=== PATIENT | male | born 1995 | race Caucasian/White ===

== ENCOUNTER 2021-02-22 11:21 | Emergency (ER) | payer OTHER ==
[2021-02-22 12:41] VITALS: BP 131/83; PULSE 78; RESP 18; TEMP 97.8
--- NOTE | 2021-02-22 13:32 | ED ---
URI HPI - General Chief Complaint: Upper Respiratory Infection Stated Complaint: cough/fever/sob Time Seen by Provider: 02/22/21 12:53 Source: patient, RN notes reviewed Mode of arrival: ambulatory Limitations: no limitations - History of Present Illness Initial Comments: Patient is a 25-year-old male presenting to emergency Department for a recheck. Patient states one week ago he had a cough, congestion and fever for 2 days. Patient states he missed about 3 days of work. Throughout last week his symptoms have improved and today he feels back to his normal self. He is here for a recheck and a work note. He denies any chest pain or short of breath, no coughing or congestion today. No abdominal pain, no nausea or vomiting. No fevers or chills in the last 2 days. He denies history of asthma COPD. He takes no medications. He has no further complaints. His vitals are stable upon arrival. - Related Data Allergies Allergy/AdvReac Type Severity Reaction Status Date / Time No Known Allergies Allergy Verified 02/22/21 12:37 Review of Systems ROS Statement: Those systems with pertinent positive or pertinent negative responses have been documented in the HPI. ROS Other: All systems not noted in ROS Statement are negative. Past Medical History Past Medical History: No Reported History History of Any Multi-Drug Resistant Organisms: None Reported Past Surgical History: No Surgical Hx Reported Past Psychological History: No Psychological Hx Reported Smoking Status: Current every day smoker Past Alcohol Use History: None Reported Past Drug Use History: None Reported General Exam - General Exam Comments Initial Comments: GENERAL: Patient is well-developed and well-nourished. Patient is nontoxic and in no acute distress. HEAD: Atraumatic, normocephalic. EYES: Pupils equal round and reactive to light, extraocular movements intact, sclera anicteric, conjunctiva are normal. Eyelids were unremarkable. ENT: Nares patent, oropharynx clear without exudates. Moist mucous membranes. NECK: Normal range of motion, supple without lymphadenopathy or JVD. LUNGS: Unlabored respirations. Breath sounds clear to auscultation bilaterally and equal. No wheezes rales or rhonchi. HEART: Regular rate and rhythm without murmurs, rubs or gallops. ABDOMEN: Soft, nontender, normoactive bowel sounds. No guarding, no rebound. No masses appreciated. : Deferred MUSCULOSKELETAL: Normal extremities with adequate strength and normal range of motion, no pitting or edema. No clubbing or cyanosis. NEUROLOGICAL: Patient is alert and oriented x 3. SKIN: Warm, Dry, normal turgor, no rashes or lesions noted. Limitations: no limitations Course Vital Signs 02/22/21 12:37 Temperature 97.8 F Pulse Rate 78 Respiratory 18 Rate Blood Pressure 131/83 O2 Sat by Pulse 99 Oximetry Medical Decision Making - Medical Decision Making Patient is a 25-year-old male here for recheck and a work note to return to work. He had fever and congestion one week ago. Covid test today is negative. His vitals are stable, exam is normal. Patient will receive a work note to be cleared to return to work. Hes stable for discharge. He is in agreement with this plan of care. He can follow-up with his doctor. - Lab Data Lab Results 02/22/21 Range/Units 12:42 Coronavirus (PCR) Not Detected (Not Detectd) Disposition Clinical Impression: Viral illness Disposition: HOME SELF-CARE Condition: Stable Instructions (If sedation given, give patient instructions): Normal Exam (ED) Additional Instructions: Please return to the Emergency Department if symptoms worsen or any other concerns. Covid test is negative. Is patient prescribed a controlled substance at d/c from ED?: No Referrals: None,Stated [Primary Care Provider] - 1-2 days Time of Disposition: 13:31
== END 2021-02-22 13:44 | disposition home or self-care (01) ==
LOC: EC 11:21
DX: B34.9 Viral infection, unspecified (principal); F17.200 Nicotine dependence, unspecified, uncomplicated; Z20.822 Contact with and (suspected) exposure to COVID-19
CPT/HCPCS: 87635; 99283

== ENCOUNTER 2023-07-13 12:40 | Emergency (ER) | payer OTHER ==
--- NOTE | 2023-07-13 13:16 | XR ---
EXAMINATION TYPE: XR knee complete RT DATE OF EXAM: 07/13/2023 1:09 PM CLINICAL INDICATION:Male, 27 years old with history of Injury; [facility] COMPARISON: None. TECHNIQUE: XR knee complete RT; examined in Frontal, lateral and oblique projections. FINDINGS: No evidence of any acute osseous pathology, or joint effusion is noted. A fabella is present. Prepatellar soft tissue edema. IMPRESSION: 1. No acute osseous pathology. 2. Prepatellar soft tissue edema.
--- NOTE | 2023-07-13 13:37 | ED ---
Lower Extremity Injury HPI - General Chief Complaint: Extremity Injury, Lower Stated Complaint: Right leg injury/ [facility] Time Seen by Provider: 07/13/23 13:36 Source: patient Mode of arrival: ambulatory Limitations: no limitations - History of Present Illness Initial Comments: Patient is a 27-year-old gentleman is otherwise healthy presents emergency room complaints of right lateral knee pain. Patient states that he was working last night and fell twisting his right knee and landed with his knee on the cement. He has pain worse with ambulation and with bending the knee. The pain is worse in the lateral aspect. He denies any previous knee injuries or surgeries. - Related Data Previous Rx's Medication Instructions Recorded Ketorolac [Toradol] 10 mg PO Q8HR #15 tab 07/13/23 Allergies Allergy/AdvReac Type Severity Reaction Status Date / Time No Known Allergies Allergy Verified 07/13/23 12:57 Review of Systems ROS Statement: Those systems with pertinent positive or pertinent negative responses have been documented in the HPI. ROS Other: All systems not noted in ROS Statement are negative. Past Medical History Past Medical History: No Reported History History of Any Multi-Drug Resistant Organisms: None Reported Past Surgical History: No Surgical Hx Reported Past Psychological History: No Psychological Hx Reported Smoking Status: Current every day smoker Past Alcohol Use History: None Reported Past Drug Use History: None Reported General Exam Limitations: no limitations General appearance: alert, in no apparent distress Head exam: Present: atraumatic Neck exam: Present: full ROM Respiratory exam: Present: normal lung sounds bilaterally Cardiovascular Exam: Present: regular rate Extremities exam: Present: tenderness (right knee pa in, worse over the right lateral knee and R meniscus area), other (no significant swelling, erythema or warmth. compartments are soft. no clicking elicited. no laxity of ligaments) Back exam: Present: full ROM Neurological exam: Present: alert, oriented X3, CN II-XII intact Psychiatric exam: Present: normal affect, normal mood Skin exam: Present: warm, dry Course Vital Signs 07/13/23 07/13/23 12:55 15:36 Temperature 97.9 F 98.1 F Pulse Rate 73 68 Respiratory 20 18 Rate Blood Pressure 123/78 126/71 O2 Sat by Pulse 98 Oximetry - Reevaluation(s) Reevaluation #1: 07/13/23 0214 Patient's whelping emergency room. I discussed imaging results which are neg ative for any fracture dislocation. There is some mild swelling. I discussed with the proposal specialist for possible outpatient MRI and further management. Patient had Rod wrap applied was given crutches for ambulation Medical Decision Making - Medical Decision Making Was pt. sent in by a medical professional or institution (SAMANTHA Sanchez, CLINICAL SYSTEMS ANALYST, urgent care, hospital, or half-way...) When possible be specific @ -[No] Did you speak to anyone other than the patient for history (EMS, parent, family, police, friend...)? What history was obtained from this source @ -[No] Did you review nursing and triage notes (agree or disagree)? Why? @ -[I reviewed and agree with nursing and triage notes] Were old charts reviewed (outside hosp., previous admission, EMS record, old EKG, old radiological studies, urgent care reports/EKG's, half-way records)? Report findings @ -[No old charts were reviewed] Differential Diagnosis (chest pain, altered mental status, abdominal pain women, abdominal pain men, vaginal bleeding, weakness, fever, dyspnea, syncope, headache, dizziness, GI bleed, back pain, seizure, CVA, palpatations, mental health, musculoskeletal)? @ -Right knee contusion, right knee sprain, ligamentous injury of the right knee EKG interpreted by me (3pts min.). @ -[As above] X-rays interpreted by me (1pt min.). @ -[xray shows prepatellar effusion without any fractures or dislocations. CT interpreted by me (1pt min.). @ -[None done] U/S interpreted by me (1pt. min.). @ -[None done] What testing was considered but not performed or refused? (CT, X-rays, U/S, labs)? Why? @ -[None] What meds were considered but not given or refused? Why? @ -[None] Did you discuss the management of the patient with other professionals (professionals i.e. SAMANTHA Sanchez, CLINICAL SYSTEMS ANALYST, lab, RT, psych nurse, social staff worker, lead systems analyst, teacher, air control/anti air warfare officer, bottle caser)? Give summary @ -[No] Was smoking cessation discussed for >3mins.? @ -[No] Was critical care preformed (if so, how long)? @ -[No] Were there social determinants of health that impacted care today? How? (Homelessness, low income, unemployed, alcoholism, drug addiction, transportation, low edu. Level, literacy, decrease access to med. care, prison, rehab)? @ -[No] Was there de-escalation of care discussed even if they declined (Discuss DNR or withdrawal of care, Hospice)? DNR status @ -[No] What co-morbidities impacted this encounter? (DM, HTN, Smoking, COPD, CAD, Cancer, CVA, ARF, Chemo, Hep., AIDS, mental health diagnosis, sleep apnea, morbid obesity)? @ -[None] Was patient admitted / discharged? Hospital course, mention meds given and route, prescriptions, significant lab abnormalities, going to OR and other pertinent info. @ -[Hospitalization is required patient is stable to follow up with proposal specialist as an outpatient New problem with uncertain prognosis? @ -[No] Drug Therapy requiring intensive monitoring for toxicity (Heparin, Nitro, Insulin, Cardizem)? @ -[No] Were any procedures done? @ -[No] Diagnosis/symptom? @ right knee sprain, right knee pain, knee effusion Acute, or Chronic, or Acute on Chronic? @ -acute] Uncomplicated (without systemic symptoms) or Complicated (systemic symptoms)? @ -[default] Side effects of treatment? @ -[No] Exacerbation, Progression, or Severe Exacerbation? @ -[No] Poses a threat to life or bodily function? How? (Chest pain, USA, MS, pneumonia, PE, COPD, DKA, ARF, appy, cholecystitis, CVA, Diverticulitis, Homicidal, Suicidal, threat to staff... and all critical care pts) @ -[No] - Radiology Data Radiology results: report reviewed, image reviewed Disposition Clinical Impression: Knee pain, Knee sprain, Knee effusion, right Disposition: HOME SELF-CARE Instructions (If sedation given, give patient instructions): Knee Sprain (ED), Knee Pain (ED) Prescriptions: Ketorolac [Toradol] 10 mg PO Q8HR #15 tab Is patient prescribed a controlled substance at d/c from ED?: No When asked, does pt state using other controlled substances?: No Referrals: None,Stated [Primary Care Provider] - 1-2 days Fabio Martinez MD [Medical Doctor] - 1-2 days Valeriano Soto DO [Doctor of Osteopathic Medicine] - 1-2 days Time of Disposition: 15:29
[2023-07-13 16:04] VITALS: BP 126/71; PULSE 68; RESP 18; TEMP 98.1
== END 2023-07-13 15:40 | disposition home or self-care (01) ==
LOC: EC 12:40
DX: S83.91XA Sprain of unspecified site of right knee, initial encounter (principal); F17.200 Nicotine dependence, unspecified, uncomplicated; X50.1XXA Overexertion from prolonged static or awkward postures, initial encounter; Y99.0 Civilian activity done for income or pay
CPT/HCPCS: 99283